=== PATIENT | female | born 1980 | race Caucasian/White ===

== ENCOUNTER 2021-06-14 17:44 | Emergency (ER) | payer OTHER, SELFPAY ==
--- NOTE | ~2021-06-14 | XR_ITS ---
EXAMINATION: XR chest 2V DATE: 06/14/2021 18:20 INDICATION: Chest pressure TECHNIQUE: PA and lateral views of the chest are obtained. COMPARISON: None available FINDINGS: The lungs are free of acute opacities. There is no pleural effusion or pneumothorax. The ca rdiomediastinal silhouette is normal. The visualized bones and soft tissues are unremarkable. IMPRESSION: 1. No acute cardiopulmonary abnormality. Reviewed, dictated and finalized at location A.
--- NOTE | 2021-06-14 17:46 | ECG_ITS ---
Measurements Intervals [place] Rate: 77 P: 51 NC: 159 QRS: 50 QRSD: 81 T: 54 QT: 376 QTc: 427 Interpretive Statements SINUS RHYTHM BASELINE ARTIFACT- I, III NORMAL ECG Electronically Signed On 06-14-2021 19:14:35 CDT by Christiano Thomas D.O.
[2021-06-14 17:48] VITALS: BP 115/77; PULSE 83; RESP 14; TEMP 36.8; O2SAT 99
[2021-06-14 18:04] LABS: Basophils Percent Auto 0.3 % (0.2-1.2); Eosinophils Percent Auto 0.1 % (0-4.4); Hematocrit 39.7 % (37.0-47.0); Hemoglobin 13.2 g/dL (12.0-15.0); Immature Granulocyte Absolute 0.04 K/mm3 (0.00-0.031); Immature Granulocyte Percent A 0.4 % (0-0.5); Lymphocytes Absolute Auto 1.64 K/mm3 (0.9-3.2); Lymphocytes Percent Auto 15.8 % (18.3-44.2); Mean Corpuscular HGB Conc 33.2 g/dl (32-36); Mean Corpuscular Hemoglobin 28.9 pg (26-34); Mean Corpuscular Volume 86.9 fl (80-100); Mean Platelet Volume 10.8 fl (7.4-10.4); Monocytes Absolute Auto 0.6 K/mm3 (0.1-0.6); Monocytes Percent Auto 5.4 % (2.6-8.5); Neutrophils Absolute Auto 8.1 K/mm3 (1.3-6.7); Platelet Count Result 276 k/mm3 (150-375); Red Blood Count 4.57 M/mm3 (4.2-5.4); Red Cell Distribution Width 14.7 % (11.5-14.5); White Blood Count 10.4 K/mm3 (4.5-10.0)
[2021-06-14 18:14] LABS: INR 0.9; Prothrombin Time 11.8 Seconds (11.1-14.7)
[2021-06-14 18:15] LABS: Partial Thromboplastin Time 22.6 SECONDS (22.3-36.8)
[2021-06-14 18:17] LABS: Anion Gap 13 mmol/L (8-16); Blood Urea Nitrogen 13 mg/dL (7-17); Calcium 9.4 mg/dL (8.4-10.2); Carbon Dioxide 22 mmol/L (22-30); Chloride 104 mmol/L (98-107); Estimated CRCL calculation 99 ml/min; Estimated Glomerular Filt Rate > 60; Glucose 117 mg/dL (65-110); Potassium 4.3 mmol/L (3.4-5.0); Sodium 139 mmol/L (137-145)
[2021-06-14 18:29] LABS: Troponin I < 0.012 ng/mL (0.000-0.034)
[2021-06-14 22:12] VITALS: BP 115/90; PULSE 64; RESP 15; O2SAT 100; O2SAT 98
[2021-06-14 22:46] LABS: Troponin I < 0.012 ng/mL (0.000-0.034)
[2021-06-15] MEDS: KETOROLAC 15 MG/ML VIAL (*BKC) IV PUSH (00:48)
[2021-06-15 00:51] VITALS: BP 110/77; PULSE 60; RESP 14; O2SAT 98
--- NOTE | 2021-06-15 01:03 | ED.GENADULT ---
HPI - General Adult General Chief complaint: Chest Pain Stated complaint: chest pressure Time Seen by Provider: 06/14/21 22:41 History of Present Illness HPI narrative: Patient is a 40-year-old female who presents ER with chest pain. Began 6 AM on 06/14/2021. She was rolling over to turn off her alarm when she felt this tightness in the center of her chest that then spread across her chest. It is since improved but she still has minor achiness along the left side that is reproducible with palpation. No exertional dyspnea or chest pain. She reports she has had a URI and she was negative for flu as well as Covid. She is currently taking prednisone for her symptoms. Denies nausea or vomiting. No loss of consciousness. No personal or family history of coronary disease. She does have an aunt who of an OH in her 40s. No relief of pain with Tylenol. Denies acid reflux symptoms. Related Data Home Medications Medication Instructions Recorded Confirmed prednisone 06/14/21 Allergies Allergy/AdvReac Type Severity Reaction Status Date / Time acetaminophen [From Vicodin] AdvReac Hives Verified 06/14/21 22:34 diphenhydramine AdvReac Hallucinati Verified 06/14/21 22:34 [From Benadryl] ng erythromycin base AdvReac Hives Verified 06/14/21 22:34 hydrocodone [From Vicodin] AdvReac Hives Verified 06/14/21 22:34 Sulfa (Sulfonamide AdvReac Hives Verified 06/14/21 22:34 Antibiotics) Review of Systems Review of Systems: All systems reviewed & are unremarkable except as noted in HPI and below Constitutional: Constitutional: Denies chills, Denies fever(s) and Denies weakness ENT: Reports nasal congestion and Denies sore throat Cardiovascular: Cardiovascular: Reports chest pain, Denies rapid heart rate and Denies radiating jaw, neck or arm pain Respiratory: Respiratory: Denies cough, Denies dyspnea and Denies wheezing Gastrointestinal: Gastrointestinal: Denies abdominal pain, Denies nausea and Denies vomiting Musculoskeletal: Musculoskeletal: Denies back pain and Denies muscle cramps PMFSH Past Medical History Medical History (Updated 06/15/21 @ 01:18 by Loyd Norton MD) Healthy female adult Surgical History Surgical History (Updated 06/15/21 @ 01:16 by Loyd Norton MD) No history of previous surgery Social History Social History (Updated 06/15/21 @ 01:16 by Loyd Norton MD) Smoking status: Never smoker Exam Narrative: GENERAL: Well-appearing, well-nourished, and in no acute distress. HEAD: Normocephalic, atraumatic. CHEST: Clear to auscultation. No respiratory distress. Mild tenderness palpation left chest wall lateral to the sternal border. HEART: Regular rate and rhythm. Normal peripheral pulses. ABDOMEN: Soft, nontender, nondistended. EXTREMITIES: Normal range of motion. No edema. SKIN: Warm, dry, no rash. NEURO: Alert and oriented x3. PSYCH: Normal mood and affect. Course Course Emergency Course: Chest pain resolved with Toradol. Informed of results. Chest wall pain versus pleurisy. Patient may take low-dose ibuprofen while she takes her prednisone. Vital Signs Vital signs: Vital Signs Temperature 98.2 F 06/14/21 17:48 Pulse Rate 83 06/14/21 17:48 Respiratory Rate 14 06/14/21 17:48 Blood Pressure 115/77 06/14/21 17:48 Pulse Oximetry 99 06/14/21 17:48 Temperature 98.2 F 06/14/21 17:48 Pulse Rate 60 06/15/21 00:51 Respiratory Rate 14 06/15/21 00:51 Blood Pressure 110/77 06/15/21 00:51 Pulse Oximetry 98 06/15/21 00:51 Medical Decision Making Vital Signs Vital Signs: Vital Signs Temperature 98.2 F 06/14/21 17:48 Pulse Rate 83 06/14/21 17:48 Respiratory Rate 14 06/14/21 17:48 Blood Pressure 115/77 06/14/21 17:48 Pulse Oximetry 99 06/14/21 17:48 Temperature 98.2 F 06/14/21 17:48 Pulse Rate 60 06/15/21 00:51 Respiratory Rate 14 06/15/21 00:51 Blood Pressure 110/77 06/15/21 00:51 Pul
[2021-06-15 01:25] LABS: Troponin I < 0.012 ng/mL (0.000-0.034)
[2021-06-15 02:01] VITALS: BP 110/77; PULSE 65; RESP 16; O2SAT 98
== END 2021-06-15 02:00 | disposition home or self-care (01) ==
PROVIDERS: Emergency Medicine; Emergency Provider Emergency Medicine
DX: R07.89 Other chest pain (principal)
CPT/HCPCS: 36415; 71046; 80048; 84484; 85025; 85610; 85730; 93005; 96374; 99284; J1885

== ENCOUNTER 2024-01-08 08:47 | Outpatient (CLI) | payer OTHER, SELFPAY ==
--- NOTE | ~2024-01-08 | MMUS_ITS ---
EXAMINATION: MM diagnostic [facility] [place], US breast RT complete HISTORY: Pain radiating from right axilla to right nipple TECHNIQUE: ML, MLO and CC 3-D tomosynthesis images of both breasts were performed and synthetic 2-D i mages were generated. CAD analysis was submitted and interpreted. High resolution complete right [address] ultrasound examination including all 4 quadrants and subareolar area was performed. COMPARISON: None . Baseline examination. FINDINGS: MAMMOGRAPHIC FINDINGS: No suspicious mass or architectural distortion, malignant calcification, skin thickening or retractio n is detected. ULTRASOUND: No suspicious mass or shadowing, cyst or other significant abnormality is detected. IMPRESSION: 1. No mammographic or sonographic evidence of malignancy 2. Routine annual mammographic screening is recommended BI-RADS Category 1: Negative Reviewed, dictated and finalized at location A. IMPRESSION: 1. No mammographic or sonographic evidence of malignancy 2. Routine annual mammographic screening is recommended BI-RADS Category 1: Negative
== END 2024-01-08 08:48 | disposition home or self-care (01) ==
LOC: CHSIMG 08:50
PROVIDERS: PCP Student in an Organized Health Care Education/Training Program; Visit Provider Student in an Organized Health Care Education/Training Program
DX: N64.4 Mastodynia (principal)
CPT/HCPCS: 76641; 77062; 77066; G0279